=== PATIENT | male | born 1945 | race Caucasian/White ===

== ENCOUNTER 2016-11-17 09:19 | Emergency (ER) | payer MEDICARE, OTHER ==
[2016-11-17] MEDS ORDERED: ASPIRIN 81 MG TABLET, CHEWABLE PO ONE (09:21)
[2016-11-17 10:10] LABS: ABSOLUTE BASOPHILS # (AUTO) 0.1 10^3/uL (0.0-0.2); ABSOLUTE EOSINOPHILS # (AUTO) 0.4 10^3/uL (0.0-0.6); ABSOLUTE LYMPHOCYTES (AUTO) 1.7 10^3/uL (0.5-4.7); ABSOLUTE MONOCYTES (AUTO) 0.9 10^3/uL (0.1-1.4); ABSOLUTE NEUT (AUTO) 5.6 10^3/uL (1.7-8.2); BASOPHILS % (AUTO) 0.9 % (0-2); EOSINOPHILS % (AUTO) 4.1 % (0-6); HEMATOCRIT 44.6 % (37.9-51.0); HEMOGLOBIN 15.4 g/dL (13.5-17.0); HGB HCT DIFFERENCE 1.6; LYMPHOCYTES % (AUTO) 19.8 % (13-45); MEAN CORPUSCULAR HEMOGLOBIN 30.5 pg (27.0-33.4); MEAN CORPUSCULAR HGB CONC 34.5 g/dL (32.0-36.0); MEAN CORPUSCULAR VOLUME 88 fl (80-97); MONOCYTES % (AUTO) 10.4 % (3-13); RED BLOOD COUNT 5.04 10^6/uL (4.35-5.55); RED CELL DISTRIBUTION WIDTH 13.5 % (11.5-14.0); SEGMENTED NEUTROPHILS % (AUTO) 64.8 % (42-78); WHITE BLOOD COUNT 8.7 10^3/uL (4.0-10.5)
--- NOTE | 2016-11-17 10:20 | EKG REPORT ---
SEVERITY:- NORMAL ECG - SINUS RHYTHM : Confirmed by: Richard Gardner 17-Nov-2016 10:18:49
[2016-11-17 10:28] LABS: ALANINE AMINOTRANSFERASE 59 U/L (21-72); ALBUMIN 4.3 g/dL (3.5-5.0); ALKALINE PHOSPHATASE 73 U/L (38-126); ANION GAP 14 (5-19); ASPARTATE AMINO TRANSFERASE 30 U/L (17-59); BILIRUBIN,TOTAL 0.7 mg/dL (0.2-1.3); BLOOD UREA NITROGEN 15 mg/dL (7-20); CALCIUM 9.6 mg/dL (8.4-10.2); CARBON DIOXIDE 29 mmol/L (22-30); CHLORIDE 94 mmol/L (98-107); CREATINE KINASE 166 U/L (55-170); CREATININE RESULT 1.32 mg/dL (0.52-1.25); GLUCOSE 102 mg/dL (75-110); POTASSIUM 3.6 mmol/L (3.6-5.0); TOTAL PROTEIN 7.5 g/dL (6.3-8.2)
[2016-11-17 10:39] LABS: CREATINE KINASE MB 1.83 ng/mL (<4.55)
[2016-11-17 10:40] LABS: TROPONIN I < 0.012 ng/mL
--- NOTE | 2016-11-17 10:46 | ER Document Report ---
ED General - General Mode of Arrival: Ambulatory Information source: Patient TRAVEL OUTSIDE OF THE [place] IN LAST 30 DAYS: No - HPI Patient complains to provider of: chest pain Onset: Other - 2 weeks ago Onset/Duration: Gradual, Intermittent, Persistent Associated symptoms: None Similar symptoms previously: Yes - December 2015 <ALDO BRIDGES - Last Filed: 11/17/16 10:50> <MELANIA VARELA - Last Filed: 11/17/16 11:41> - General Chief Complaint: Chest Pain Stated Complaint: CHEST PAIN Notes: Patient is a 71-year-old male presenting to the emergency department concerned of intermittent chest pain onset 2 weeks ago. Patient states the pain is exacerbated with stretching and deep breaths, but this also sometimes relieves the pain. Patient states the pain extends from his mid chest into his right anterior chest wall into his underarm. There are no new or worsening symptoms today, but the patient decided to come in today because of the long duration. Patient had a similar experience back in December , but the pain went away on its own after a negative cardiac cath. (ALDO BRIDGES) - Related Data Allergies/Adverse Reactions: No Known Allergies Allergy (Unverified 11/17/16 09:30) Past Medical History - General Information source: Patient - Social History Smoking Status: Former Smoker - ~30 y/a Cigarette use (# per day): No Chew tobacco use (# tins/day): No Frequency of alcohol use: Occasional Drug Abuse: None Lives with: Spouse/Significant other Family History: Reviewed & Not Pertinent Patient has suicidal ideation: No Patient has homicidal ideation: No - Past Medical History Cardiac Medical History: Reports: Hx Hypertension Past Surgical History: Reports: Hx Cardiac Catheterization, Hx Cardiac Surgery, Hx Coronary Stent <ALDO BRIDGES - Last Filed: 11/17/16 10:50> Review of Systems - Review of Systems Constitutional: No symptoms reported EENT: No symptoms reported Cardiovascular: See HPI, Chest pain Respiratory: No symptoms reported Gastrointestinal: No symptoms reported Genitourinary: No symptoms reported Male Genitourinary: No symptoms reported Musculoskeletal: No symptoms reported Skin: No symptoms reported Hematologic/Lymphatic: No symptoms reported Neurological/Psychological: No symptoms reported -: Yes All other systems reviewed and negative <ALDO BRIDGES - Last Filed: 11/17/16 10:50> Physical Exam - Vital signs Interpretation: Hypertensive - General General appearance: Appears well, Alert - HEENT Head: Normocephalic, Atraumatic Eyes: Normal Pupils: PERRL - Respiratory Respiratory status: No respiratory distress Chest status: Nontender Breath sounds: Normal Chest palpation: Normal - Cardiovascular Rhythm: Regular Heart sounds: Normal auscultation Murmur: No - Abdominal Inspection: Obese Distension: No distension Bowel sounds: Normal Tenderness: Nontender Organomegaly: No organomegaly - Back Back: Normal, Nontender - Extremities General upper extremity: Normal inspection, Nontender, Normal color, Normal ROM , Normal temperature General lower extremity: Normal inspection, Nontender, Normal color, Normal ROM , Normal temperature - Neurological Neuro grossly intact: Yes Cognition: Normal Pollock Coma Scale Eye Opening: Spontaneous Estevan Coma Scale Verbal: Oriented Pollock Coma Scale Motor: Obeys Commands Estevan Coma Scale Total: 15 Speech: Normal - Psychological Associated symptoms: Normal affect, Normal mood - Skin Skin Temperature: Warm Skin Moisture: Dry Skin Color: Normal <ALDO BRIDGES - Last Filed: 11/17/16 10:50> Course - Laboratory Result Diagrams: 11/17/16 09:53 11/17/16 09:53 <ALDO BRIDGES - Last Filed: 11/17/16 10:50> - Laboratory Result Diagrams: 11/17/16 09:53 11/17/16 09:53 <MELANIA VARELA - Last Filed: 11/17/16 11:41> - Vital Signs Vital signs: Temp Pulse Resp BP Pulse Ox 97.6 F 77 13 138/74 H 95 11/17/16 09:31 11/17/16 09:31 11/17/16 10:57 11/17/16 10:57 11/17/16 10:57 (ALDO BRIDGES) (MELANIA VARELA) - Laboratory Laboratory results interpreted by me: 11/17/16 09:53 Chloride 94 L Creatinine 1.32 H Est GFR (Non-Af Amer) 54 L (ALDO BRIDGES) (MELANIA VARELA) Discharge <ALDO BRIDGES - Last Filed: 11/17/16 10:50> <MELANIA VARELA - Last Filed: 11/17/16 11:41> - Discharge Clinical Impression: Anterior chest wall pain Condition: Stable Disposition: HOME, SELF-CARE Additional Instructions: Chest Wall Pain: Your chest pain has been diagnosed as coming from the chest wall. This is often caused by straining the muscles or joints in the chest during physical activity, direct trauma, coughing, or vigorous vomiting. Persons with arthritis are especially prone to this type of pain, due to inflammation of the cartilage joints near the breast bone. Occasionally, no cause can be found. Rest from strenuous physical activity. This kind of chest pain is usually made worse by movement of the chest. Depending on the symptoms, we may prescribe medicine for pain, muscle relaxation, and antiinflammatory effects. If the pain is new, and seems to be due to muscle strain, cold packs can help. Otherwise, apply gentle warmth to the painful area for 15 minutes every hour or two. You should contact the doctor immediately if things change. Further evaluation is needed if you develop a fever or cough, if the nature of the pain changes, or if you become short of breath. YOUR PAIN SEEMS TO BE COMING FROM THE RIGHT ANTERIOR CHEST WALL MUSCLES. YOUR EKG, CXR AND CARDIAC ENZYMES ARE NORMAL. YOUR BLOOD PRESSURE WAS A LITTLE ELEVATED. BE SURE TO TAKE YOUR REGULAR MEDICATIONS. REST. FOLLOW UP WITH DR. HSU NEXT WEEK IF THE DISCOMFORT PERSISTS. RETURN TO THE EMERGENCY ROOM IF ANY NEW OR WORSENING SYMPTOMS. Referrals: BAYRON HSU MD [Primary Care Provider] - Follow up in 3-5 days Scribe Attestation: 11/17/16 10:50 I personally performed the services described in the documentation, reviewed and edited the documentation which was dictated to the scribe in my presence, and it accurately records my words and actions. (MELANIA VARELA) Scribe Documentation - Scribe Written by Tracie:: Aldo Bridges 11/17/2016 10:40 acting as scribe for :: Dulce <ALDO BRIDGES - Last Filed: 11/17/16 10:50>
[2016-11-17 11:01] VITALS: BP 138/74
== END 2016-11-17 11:02 | disposition home or self-care (01) ==
LOC: ER 09:19
DX: R07.89 Other chest pain (principal); I10 Essential (primary) hypertension; Z98.61 Coronary angioplasty status; Z87.891 Personal history of nicotine dependence
CPT/HCPCS: 93005; 99285; 36415; 82553; 82550; 85025; 80053; 84484; 71010; 93010; A9270

== ENCOUNTER → 2016-12-22 | Outpatient (CLI) | payer MEDICARE, OTHER ==
--- NOTE | 2016-12-25 13:15 | XCELERA REPORT ---
[address] [address] Transthoracic Echocardiogram Report Name: JANNIE PHILLIPS Age: 71 yrs Gender: Male : 1945 Patient Status: Outpatient Patient Location: [facility] Study Date: 12/22/2016 03:12 PM Height: 69 in Weight: 222 lb BSA: 2.2 m2 Procedure: A complete two-dimensional transthoracic echocardiogram was performed (2D, M-mode, spectral and color flow Doppler). The study was technically adequate with some images being suboptimal in quality. Reason For Study: PRE OP, CAD Ordering Physician: ROLANDO LUDWIG Performed By: Kale Ellsworth Interpretation Summary The left ventricular ejection fraction is normal. There is borderline concentric left ventricular hypertrophy. The left ventricle is grossly normal size. Doppler measurements suggest impaired left ventricular relaxation, which is associated with grade I/IV or mild diastolic dysfunction Wall motion cannot be accurately commented on, but no definite regional wall motion abnormalities noted. The right ventricular systolic function is normal. The right atrium is normal. The left atrium is mildly dilated. There is no mitral valve stenosis. There is a trace to mild amount of mitral regurgitation There is no aortic valve stenosis No aortic regurgitation is present. There is a trace to mild amount of tricuspid regurgitation Right ventricular systolic pressure is at the upper limits of normal There is no pericardial effusion. MMode/2D Measurements \T\ Calculations RVDd: 2.4 cm LVIDd: 6.1 cm FS: 23.5 % Ao root diam: 3.4 cm IVSd: 0.85 cm LVIDs: 4.7 cm EDV(Teich): 188.2 ml LVPWd: 0.90 cm ESV(Teich): 101.3 ml Ao root area: 8.8 cm2 EF(Teich): 46.2 % LA dimension: 4.7 cm Doppler Measurements \T\ Calculations MV E max kizzy: MV P1/2t max kizzy: Ao V2 max: LV V1 max P.7 cm/sec 65.4 cm/sec 116.4 cm/sec 4.2 mmHg MV A max kizzy: MV P1/2t: 66.7 msec Ao max PG: LV V1 max: 81.0 cm/sec 5.4 mmHg 102.7 cm/sec MV E/A: 0.79 MVA(P1/2t): 3.3 cm2 MV dec slope: 286.9 cm/sec2 MV dec time: 0.22 sec PA V2 max: PI end-d kizzy: TR max kizzy: RAP systole: 79.0 cm/sec 96.0 cm/sec 256.0 cm/sec 10.0 mmHg PA max PG: TR max P.5 mmHg 26.2 mmHg RVSP(TR): 36.2 mmHg Left Ventricle The left ventricle is grossly normal size. There is borderline concentric left ventricular hypertrophy. The left ventricular ejection fraction is normal. Doppler measurements suggest impaired left ventricular relaxation, which is associated with grade I/IV or mild diastolic dysfunction. Wall motion cannot be accurately commented on, but no definite regional wall motion abnormalities noted. Right Ventricle The right ventricle is grossly normal size. There is normal right ventricular wall thickness. The right ventricular systolic function is normal. Atria The right atrium is normal. The left atrium is mildly dilated. Interarterial septum not well visualized and not well dopplered. Cannot comment on ASD/PFO presence. Mitral Valve The mitral valve is grossly normal. There is no mitral valve stenosis. There is a trace to mild amount of mitral regurgitation. Aortic Valve The aortic valve is grossly normal. There is no aortic valve stenosis. No aortic regurgitation is present. Tricuspid Valve The tricuspid valve is not well visualized, but is grossly normal. There is no tricuspid stenosis. There is a trace to mild amount of tricuspid regurgitation. Right ventricular systolic pressure is at the upper limits of normal. Pulmonic Valve The pulmonic valve is not well visualized. Great Vessels The aortic root is not well visualized but is probably normal size. The inferior vena cava was not visualized. Effusions There is no pericardial effusion. : ROLANDO LUDWIG Kristen Gardnerl
== END ==
LOC: SP 14:51
PROVIDERS: ATTEND Specialist
DX: Z01.810 Encounter for preprocedural cardiovascular examination (principal); I25.10 Atherosclerotic heart disease of native coronary artery without angina pectoris
CPT/HCPCS: 93306

== ENCOUNTER 2017-01-29 08:11 | Inpatient (IN) | payer MEDICARE, OTHER ==
[2017-01-18 14:18] LABS: HEMATOCRIT 44.2 % (37.9-51.0); HEMOGLOBIN 15.3 g/dL (13.5-17.0); HGB HCT DIFFERENCE 1.7; MEAN CORPUSCULAR HEMOGLOBIN 30.6 pg (27.0-33.4); MEAN CORPUSCULAR HGB CONC 34.7 g/dL (32.0-36.0); MEAN CORPUSCULAR VOLUME 88 fl (80-97); RED BLOOD COUNT 5.02 10^6/uL (4.35-5.55); RED CELL DISTRIBUTION WIDTH 13.8 % (11.5-14.0); WHITE BLOOD COUNT 9.5 10^3/uL (4.0-10.5)
[2017-01-18 14:32] LABS: APPEARANCE,URINE CLEAR; BILIRUBIN,URINE NEGATIVE (NEGATIVE); GLUCOSE, URINE NEGATIVE (NEGATIVE); KETONES,URINE NEGATIVE (NEGATIVE); LEUKOCYTE ESTERASE,URINE NEGATIVE (NEGATIVE); NITRITE,URINE NEGATIVE (NEGATIVE); PROTEIN,URINE NEGATIVE (NEGATIVE); URINE SPECIFIC GRAVITY 1.009; UROBILINOGEN,URINE NEGATIVE mg/dL (<2.0)
[2017-01-18 14:42] LABS: ANION GAP 13 (5-19); BLOOD UREA NITROGEN 19 mg/dL (7-20); CARBON DIOXIDE 28 mmol/L (22-30); CHLORIDE 93 mmol/L (98-107); CREATININE RESULT 1.26 mg/dL (0.52-1.25); GLUCOSE 87 mg/dL (75-110); POTASSIUM 4.6 mmol/L (3.6-5.0); SODIUM 133.9 mmol/L (137-145)
--- NOTE | 2017-01-18 20:04 | EKG REPORT ---
SEVERITY:- NORMAL ECG - SINUS RHYTHM : Confirmed by: Richard Gardner 18-Jan-2017 20:02:35
[~2017-01-29 08:11] MED LIST: BUPIVACAINE INJ/PF LIPOSOME/PF 266 MG/20 ML SDV IJ PRN; CEFAZOLIN INJ 1 GM VIAL IV PRN; IBUPROFEN 800 MG in NORMAL SALINE 250 ML IV PRN; IBUPROFEN 800 MG/NS 250 ML IV PRN; LACTATED RINGERS 1000 ML IV PRN; LANSOPRAZOLE 15 MG TAB.RAP.DR PO PRN; LIDOCAINE 0.5% INJ-PF (5 MG/ML) 50 ML SDV SUBCUT PRN; OXYCODONE HCL SR 10 MG TABLET PO PRN; SCOPOLAMINE HYDROBROMIDE 1.5 MG PATCH.TD72 TOP PRN; VANCOMYCIN HCL 1,000 MG in DEXTROSE 5%-WATER 250 ML IV PRN
[2017-01-29] MEDS ORDERED: ONDANSETRON HCL INJ/PF 4 MG/2 ML SDV ONE (08:15)
[2017-01-29] MEDS ORDERED: LIDOCAINE 2% INJ-PF (20 MG/ML) 10 ML AMPUL ONE (08:15)
[2017-01-29 08:52] LABS: PROTHROMBIN TIME 12.4 SEC (11.4-15.4)
[2017-01-29 08:53] LABS: PARTIAL THROMBOPLASTIN TIME 31.5 SEC (23.5-35.8)
[2017-01-29] MEDS ORDERED: EPHEDRINE SULFATE INJ 50 MG/1 ML AMPULE ONE (08:53)
[2017-01-29] MEDS ORDERED: MIDAZOLAM 2 MG/2 ML INJ ONE (08:53)
[2017-01-29] MEDS ORDERED: FENTANYL CITRATE INJ/PF 100 MCG/2 ML AMPUL ONE (08:53)
[2017-01-29] MEDS ORDERED: PROPOFOL INJ 200 MG/20 ML VIAL IV ONE (08:53)
[2017-01-29] MEDS ORDERED: DEXMEDETOMIDINE INJ 80 MCG/20 ML VIAL IV ONE (08:54)
[2017-01-29] MEDS ORDERED: TRANEXAMIC ACID INJ/PF 1,000 MG/10 ML SDV IV ONE ×2 (08:54→14:00)
[2017-01-29] MEDS ORDERED: THROMBIN (BOVINE) 5000 UNIT EPITAXIS KIT ONE (08:55)
[2017-01-29] MEDS ORDERED: THROMBIN (BOVINE) TOPICAL 20000 UNIT VIAL ONE (08:55)
[2017-01-29] MEDS ORDERED: BUPIVACAINE INJ/PF LIPOSOME/PF 266 MG/20 ML SDV ONE (08:56)
[2017-01-29] MEDS ORDERED: MORPHINE SULFATE 10 MG/ML INJ IV PRN ×4 (10:30→11:14)
[2017-01-29] MEDS ORDERED: PROMETHAZINE HCL INJ 25 MG/1 ML VIAL IV PRN ×2 (10:30)
[2017-01-29] MEDS ORDERED: FENTANYL CITRATE INJ/PF 100 MCG/2 ML AMPUL IV PRN ×3 (10:30)
[2017-01-29] MEDS ORDERED: OXYCODONE-ACETAMINOPHEN 5-325 MG TABLET PO PRN ×2 (10:30)
[2017-01-29] MEDS ORDERED: MEPERIDINE HCL/PF INJ 25 MG/1 ML DISP.SYRIN IV PRN (10:30)
[2017-01-29] MEDS ORDERED: DIPHENHYDRAMINE HCL 50 MG/ML VIAL IV PRN ×2 (10:30→11:14)
[2017-01-29] MEDS ORDERED: FLUTICASONE PROPIONATE 50 MCG NS PRN (11:12)
--- NOTE | 2017-01-29 11:12 | Operative Report ---
Operative Report DATE OF SURGERY: 01/29/17 PREOPERATIVE DIAGNOSIS: Right hip arthritis OPERATION: Right hip arthroplasty SURGEON: ORLY ORANTES ANESTHESIA: Spinal TISSUE REMOVED OR ALTERED: Femoral head to pathology ESTIMATED BLOOD LOSS: 150 PROCEDURE: Implants used: Femur: Striker #7 Accolade to stem Acetabular shell: 58 mm shell Liner:, 36 mm flat cross-link polyethylene liner Head:. 36 mm chrome cobalt head The patient is placed in a, left lateral decubitus position on the operating table. The, right lower extremity and hindquarter is prepped and draped in a sterile fashion. A curvilinear incision was made over the greater trochanter a posterior approach the hip was taken. The femoral head is dislocated and the femoral neck transected using an oscillating saw. Attention was next turned to the acetabulum. Soft tissues cleared off the acetabulum using electrocautery. The acetabulum was then prepared using a series of hemispherical reamers until a, 57 millimeters reamer is seated. Subsequently a 58 millimeters Alejandra titanium hemispherical shell is impacted into position and secured with one screw. A standard flat, 36 millimeters cross -link liner is impacted into the shell. Attention was next turned to the femur. Access is gained to the femoral canal using a box osteotome to the piriformis fossa. The femur is then prepared using a series of broaches until a number 7 broach is seated. A trial reduction was now performed using a 36 millimeters head with standard neck. Preoperative leg length was recreated and is excellent anterior posterior stability. A decision was made to proceed with the above construct. All trial implants were removed. The wound is irrigated with pulsed lavage. A number 7 stem is impacted into the femoral canal. A trial reduction was again performed with a 36 mm head and a standard neck. Findings as previously. The hip was dislocated one last time and the final chrome-cobalt head is impacted onto the trunnion. The hip was reduced. Wound is copiously irrigated with pulsed lavage. Sent closed in layers using interrupted Vicryl followed by james. A sterile dressing is applied and the patient's returned to recovery room in satisfactory patient.
[2017-01-29] MEDS ORDERED: MORPHINE SULFATE 10 MG/ML INJ IM PRN (11:14)
[2017-01-29] MEDS ORDERED: ACETAMINOPHEN 325 MG TABLET PO PRN (11:14)
[2017-01-29] MEDS ORDERED: ONDANSETRON 4 MG TAB.RAPDIS PO PRN (11:14)
[2017-01-29] MEDS ORDERED: ZOLPIDEM TARTRATE 5 MG TABLET PO PRN (11:14)
[2017-01-29] MEDS ORDERED: RINGERS SOLUTION,LACTATED 1,000 ML IV PRN (11:14)
[2017-01-29] MEDS ORDERED: ONDANSETRON HCL INJ/PF 4 MG/2 ML SDV IV PRN (11:14)
[2017-01-29] MEDS ORDERED: FLUTICASONE NASAL SPRAY 50 MCG/SPRY 120 SPRAY/16 GM NASL PRN (11:30)
[2017-01-29] MEDS: OXYCODONE HCL IR 5 MG TABLET PO PRN ×2 (13:24→20:53)
[2017-01-29] MEDS: IBUPROFEN 800 MG in NORMAL SALINE 250 ML IV SCH ×2 (14:00→22:41)
[2017-01-29] MEDS: SENNOSIDES/DOCUSATE 8.6-50 MG 1 EACH TABLET PO SCH (17:39)
--- NOTE | 2017-01-29 19:29 | PDOC CONSULTATION ---
Consultation Consult Date: 01/29/17 Attending physician:: ORLY ORANTES Consult reason:: Medical management of post operative medical morbidities History of Present Illness Admission Date/PCP: 01/29/17 08:11 BAYRON HSU Patient complains of: Post operative medical management History of Present Illness: JANNIE PHILLIPS is a 71 year old male patient was admitted for right total hip replacement surgery which was completed earlier today. He reported already ambulation on the surgical floor today. Patient denied any episode of chest pain pre and post surgery. No shortness of breath. No nausea or vomiting. Tolerating oral feeding.His comorbidities is significant for HTN, CAD s/p stent angioplasty, HLD, GERD, and degenerative osteoarthritis with multiple joints involvement but predominant pain in hip joints. Past Medical History Cardiac Medical History: Reports: Coronary Artery Disease, Hyperlipidema, Hypertension, Peripheral Vascular Disease Denies: Atrial Fibrillation, Congestive Heart Failure, Myocardial Infarction , Heart Murmur Renal/ Medical History: Denies: End Stage Renal Disease Malignancy Medical History: Denies: Breast Cancer, Cervical Cancer, Ovarian Cancer GI Medical History: Reports: Gastroesophageal Reflux Disease - occ (takes Tums occasionally) Denies: Crohn's Disease, Hiatal Hernia Musculoskeltal Medical History: Reports: Arthritis Denies: Fibromyalgia Past Surgical History Past Surgical History: Reports: Cardiac Catheterization, Coronary Stent, Tonsillectomy Denies: Appendectomy, Cholecystectomy, Colostomy, Coronary Artery Bypass Graft, Gastric Bypass Surgery, Herniorrhaphy, Pacemaker Social History Smoking Status: Former Smoker Hx Recreational Drug Use: No Hx Prescription Drug Abuse: No - Advance Directive Resuscitation Status: Full Code Family History Family History: Reviewed & Not Pertinent Parental Family History Reviewed: Yes Children Family History Reviewed: Yes Sibling(s) Family History Reviewed.: Yes Medication/Allergy Home Medications: Amlodipine/Atorvastatin [Caduet 10 mg-40 mg Tablet] 1 each PO QAM 01/16/17 Aspirin [Aspirin EC] 81 mg PO QAM 01/16/17 Azilsartan Med/Chlorthalidone [Edarbyclor 40-25 mg Tablet] 1 each PO QAM Cholecalciferol (Vitamin D3) [Vitamin D3 2000 unit Tablet] 2,000 unit PO QAM 05/28 Clopidogrel Bisulfate [Plavix] 75 mg PO QAM 01/16/17 Finasteride 5 mg PO QAM 01/16/17 Fish Oil/Dha/Epa [Fish Oil 1,200 mg Fish Oil] 2 each PO DAILY 01/16/17 Fluticasone Propionate 50 mcg NS DAILY PRN 01/16/17 Metoprolol Succinate [Toprol Xl] 100 mg PO QAM 01/16/17 Olopatadine HCl [Patanol 0.1% Oph Soln 5 Ml Bottle] 1 drop BTH_EYE DAILY PRN 05/28 Allergies/Adverse Reactions: No Known Allergies Allergy (Unverified 11/17/16 09:30) Review of Systems Constitutional: ABSENT: chills, fever(s), headache(s), weight gain, weight loss Eyes: PRESENT: as per HPI, visual disturbances - with use of corrective lenses, other Ears: PRESENT: hearing changes - some degree of heraing impairment Nose, Mouth, and Throat: ABSENT: as per HPI, headache(s), mouth pain, sore throat, vertigo, other Cardiovascular: ABSENT: chest pain, dyspnea on exertion, edema, orthropnea, palpitations Respiratory: ABSENT: cough, hemoptysis Gastrointestinal: ABSENT: abdominal pain, constipation, diarrhea, hematemesis, hematochezia, nausea, vomiting Musculoskeletal: PRESENT: deformity - due to joint involvement by arthritis Integumentary: ABSENT: as per HPI, diaphoresis, erythema, lesions, pruritus, rash, wounds, other Neurological: ABSENT: abnormal gait, abnormal speech, confusion, dizziness, focal weakness, syncope Psychiatric: ABSENT: anxiety, depression, homidical ideation, suicidal ideation Endocrine: ABSENT: cold intolerance, heat intolerance, menstrual abnormalities, polydipsia, polyuria Hematologic/Lymphatic: ABSENT: easy bleeding, easy bruising, lymphadenopathy Physical Exam Vital Signs: Temp Pulse Resp BP Pulse Ox 98.1 F 62 20 109/51 L 96 01/29/17 18:04 01/29/17 18:04 01/29/17 18:04 01/29/17 18:04 01/29/17 18:04 Intake & Output 01/28/17 01/29/17 01/30/17 06:59 06:59 06:59 Intake Total 5390 Output Total 2360 Balance 3030 General appearance: PRESENT: no acute distress, cooperative, obese Head exam: PRESENT: atraumatic, normocephalic Eye exam: PRESENT: conjunctiva pink, EOMI, PERRLA. ABSENT: scleral icterus Ear exam: PRESENT: normal external ear exam Mouth exam: PRESENT: moist, tongue midline Throat exam: ABSENT: post pharyngeal erythema, tonsillar erythema, tonsillar exudate, tonsillogmegaly, other Neck exam: PRESENT: full ROM. ABSENT: carotid bruit, JVD, lymphadenopathy, thyromegaly Respiratory exam: PRESENT: clear to auscultation jazmin Cardiovascular exam: PRESENT: RRR. ABSENT: diastolic murmur, rubs, systolic murmur GI/Abdominal exam: PRESENT: normal bowel sounds, soft. ABSENT: distended, guarding, mass, organolmegaly, rebound, tenderness Gentrourinary exam: PRESENT: indwelling catheter - in situ and possible removal with next 24 hours Extremities exam: PRESENT: tenderness - minimally around right hip joint surgical site. Dressing is satisfatory. Musculoskeletal exam: PRESENT: ambulatory - with walker assistance, deformity - related to multiple joint involvement with arthritis Neurological exam: PRESENT: alert, awake, oriented to person, oriented to place , oriented to time, oriented to situation, CN II-XII grossly intact. ABSENT: motor sensory deficit Psychiatric exam: PRESENT: appropriate affect, normal mood. ABSENT: homicidal ideation, suicidal ideation Skin exam: PRESENT: dry, warm, other - right hip arthroplasty dressing is satisfactory. Results Laboratory Results: 01/18/17 12:30 01/29/17 08:31 01/29/17 01/29/17 08:31 08:31 Potassium 4.0 Blood Type AB POSITIVE Antibody Screen NEGATIVE Impressions: Chest X-Ray 01/18/17 11:39 IMPRESSION: NO SIGNIFICANT RADIOGRAPHIC FINDING IN THE CHEST. Pelvis X-Ray 01/29/17 11:15 IMPRESSION: Satisfactory postoperative right hip. Assessment & Plan - Diagnosis (1) HTN (hypertension) Qualifiers: Hypertension type: essential hypertension Qualified Code(s): I10 - Essential (primary) hypertension Is this a current diagnosis for this admission?: YesPlan: See consulting attending orders. (2) HLD (hyperlipidemia) Qualifiers: Hyperlipidemia type: pure hypercholesterolemia Qualified Code(s): E78.00 - Pure hypercholesterolemia, unspecified; E78.0 - Pure hypercholesterolemia Is this a current diagnosis for this admission?: YesPlan: See consulting attending orders. (3) S/P primary angioplasty with coronary stent Is this a current diagnosis for this admission?: YesPlan: See consulting attending orders. (4) GERD (gastroesophageal reflux disease) Qualifiers: Esophagitis presence: without esophagitis Qualified Code(s): K21.9 - Gastro-esophageal reflux disease without esophagitis Is this a current diagnosis for this admission?: YesPlan: See consulting attending orders. (5) Osteoarthritis involving multiple joints on both sides of body Is this a current diagnosis for this admission?: YesPlan: See consulting attending orders. (6) History of total right hip arthroplasty Is this a current diagnosis for this admission?: YesPlan: See consulting attending orders. - Time Time Spent: 50 to 70 Minutes Medications reviewed and adjusted accordingly: Yes Anticipated discharge: Home with Homehealth Within: within 72 hours - Inpatient Certification Based on my medical assessment, after consideration of the patient's comorbidities, presenting symptoms, or acuity I expect that the services needed warrant INPATIENT care.: Yes I certify that my determination is in accordance with my understanding of Medicare's requirements for reasonable and necessary INPATIENT services [42 CFR 412.3e].: Yes Medical Necessity: Need For IV Fluids, Need for Surgery, Risk of Complication if Not Cared For in Hospital Post Hospital Care: D/C Probation And Parole Officer Documentation - Plan Summary Plan Summary: See consulting attending orders.
[2017-01-29] MEDS: RIVAROXABAN 10 MG TABLET PO SCH (22:40)
[2017-01-29] MEDS: OXYCODONE HCL SR 10 MG TABLET PO SCH (22:40)
[2017-01-29] MEDS ORDERED: VANCOMYCIN HCL 1,000 MG in DEXTROSE 5%-WATER 250 ML IV ONE (23:00)
[2017-01-30] MEDS: LANSOPRAZOLE 30 MG TAB.RAP.DR PO SCH (05:41)
[2017-01-30] MEDS: IBUPROFEN 800 MG in NORMAL SALINE 250 ML IV SCH (05:41)
[2017-01-30] MEDS: OXYCODONE HCL IR 5 MG TABLET PO PRN (06:52)
[2017-01-30 07:19] LABS: HEMATOCRIT 33.1 % (37.9-51.0); HEMOGLOBIN 11.5 g/dL (13.5-17.0); HGB HCT DIFFERENCE 1.4; MEAN CORPUSCULAR HEMOGLOBIN 30.8 pg (27.0-33.4); MEAN CORPUSCULAR HGB CONC 34.7 g/dL (32.0-36.0); MEAN CORPUSCULAR VOLUME 89 fl (80-97); RED BLOOD COUNT 3.73 10^6/uL (4.35-5.55); RED CELL DISTRIBUTION WIDTH 13.8 % (11.5-14.0); WHITE BLOOD COUNT 10.7 10^3/uL (4.0-10.5)
[2017-01-30 07:43] LABS: ANION GAP 11 (5-19); BLOOD UREA NITROGEN 32 mg/dL (7-20); CALCIUM 8.8 mg/dL (8.4-10.2); CARBON DIOXIDE 24 mmol/L (22-30); CHLORIDE 97 mmol/L (98-107); CREATININE RESULT 2.29 mg/dL (0.52-1.25); GLUCOSE 110 mg/dL (75-110); POTASSIUM 4.8 mmol/L (3.6-5.0); SODIUM 132.4 mmol/L (137-145)
[2017-01-30] MEDS ORDERED: CHLORTHALIDONE PO SCH (08:00)
[2017-01-30] MEDS ORDERED: [UNRECOGNIZED DRUG - OTHER] PO SCH (08:00)
[2017-01-30] MEDS ORDERED: AZILSARTAN MED PO SCH (08:00)
[2017-01-30] MEDS ORDERED: ATORVASTATIN PO SCH (08:00)
[2017-01-30] MEDS ORDERED: AMLODIPINE PO SCH (08:00)
[2017-01-30] MEDS ORDERED: NORMAL SALINE 1000 ML 1,000 ML IV PRN (08:23)
[2017-01-30] MEDS ORDERED: CLOPIDOGREL BISULFATE 75 MG TABLET PO SCH (10:00)
[2017-01-30] MEDS: OXYCODONE HCL SR 10 MG TABLET PO SCH ×2 (10:21→22:12)
[2017-01-30] MEDS: ATORVASTATIN CALCIUM 40 MG TABLET PO SCH (10:22)
[2017-01-30] MEDS: SENNOSIDES/DOCUSATE 8.6-50 MG 1 EACH TABLET PO SCH ×2 (10:23→17:27)
[2017-01-30] MEDS: FINASTERIDE 5 MG TABLET PO SCH (10:23)
[2017-01-30] MEDS: PRENATAL VITAMIN W-O CA NO5/FE FUMARATE/FA CAPSULE PO SCH (10:24)
[2017-01-30] MEDS: AMLODIPINE BESYLATE 10 MG TABLET PO SCH (10:34)
[2017-01-30] MEDS: LOSARTAN POTASSIUM 50 MG TABLET PO SCH (10:37)
[2017-01-30] MEDS: CHLORTHALIDONE 25 MG TABLET PO SCH (10:37)
[2017-01-30] MEDS: METOPROLOL SUCCINATE 50 MG TAB.SR.24H PO SCH (10:37)
--- NOTE | 2017-01-30 13:33 | PDOC PROGRESS REPORT ---
Subjective Progress Note for:: 01/30/17 Subjective:: Patient was out of bed in chair at the time of my bedside consultation earlier this morning. Tolerating breakfast. No nausea or vomiting. He denied any chest pain or difficulty with breathing. No reported fever or chills. Reported satisfactory pain control and anticipatory of physical therapy session. Physical Exam Vital Signs: Temp Pulse Resp BP Pulse Ox 98.2 F 71 18 114/59 L 96 01/30/17 09:56 01/30/17 09:56 01/30/17 09:56 01/30/17 09:56 01/30/17 09:56 Intake & Output 01/29/17 01/30/17 01/31/17 06:59 06:59 06:59 Intake Total 5690 Output Total 2560 Balance 3130 Weight 114 kg General appearance: PRESENT: no acute distress, cooperative, obese Head exam: PRESENT: atraumatic, normocephalic Eye exam: PRESENT: conjunctiva pink, EOMI, PERRLA. ABSENT: scleral icterus Respiratory exam: PRESENT: clear to auscultation jazmin Cardiovascular exam: PRESENT: RRR. ABSENT: diastolic murmur, rubs, systolic murmur GI/Abdominal exam: PRESENT: normal bowel sounds, soft. ABSENT: distended, guarding, mass, organolmegaly, rebound, tenderness Extremities exam: PRESENT: full ROM, tenderness - around right hip surgical site. Musculoskeletal exam: PRESENT: ambulatory, deformity - related to joint involvement with arthritis, tenderness - around right hip surgical site. Neurological exam: PRESENT: alert, awake, oriented to person, oriented to place , oriented to time, oriented to situation, CN II-XII grossly intact. ABSENT: motor sensory deficit Skin exam: PRESENT: dry, warm, other - right hip surgical site dressing fairly satisfactory. Results Laboratory Results: 01/30/17 07:11 01/30/17 07:11 01/30/17 01/30/17 07:11 07:11 WBC 10.7 H RBC 3.73 L Hgb 11.5 L Hct 33.1 L MCV 89 MCH 30.8 MCHC 34.7 RDW 13.8 Plt Count 170 Sodium 132.4 L Potassium 4.8 Chloride 97 L Carbon Dioxide 24 Anion Gap 11 BUN 32 H Creatinine 2.29 H Est GFR ( Amer) 34 L Est GFR (Non-Af Amer) 28 L Glucose 110 Calcium 8.8 Impressions: Chest X-Ray 01/18/17 11:39 IMPRESSION: NO SIGNIFICANT RADIOGRAPHIC FINDING IN THE CHEST. Pelvis X-Ray 01/29/17 11:15 IMPRESSION: Satisfactory postoperative right hip. Assessment & Plan - Diagnosis (1) HTN (hypertension) Qualifiers: Hypertension type: essential hypertension Qualified Code(s): I10 - Essential (primary) hypertension Is this a current diagnosis for this admission?: YesPlan: See consulting attending physician orders. (2) HLD (hyperlipidemia) Qualifiers: Hyperlipidemia type: pure hypercholesterolemia Qualified Code(s): E78.00 - Pure hypercholesterolemia, unspecified; E78.0 - Pure hypercholesterolemia Is this a current diagnosis for this admission?: Yes (3) S/P primary angioplasty with coronary stent Is this a current diagnosis for this admission?: YesPlan: See consulting attending physician orders. (4) GERD (gastroesophageal reflux disease) Qualifiers: Esophagitis presence: without esophagitis Qualified Code(s): K21.9 - Gastro-esophageal reflux disease without esophagitis Is this a current diagnosis for this admission?: Yes (5) Osteoarthritis involving multiple joints on both sides of body Is this a current diagnosis for this admission?: Yes (6) History of total right hip arthroplasty Is this a current diagnosis for this admission?: YesPlan: S/p recent right hip arthroplasty surgery. See consulting attending physician orders. (7) Acute kidney injury Is this a current diagnosis for this admission?: NoPlan: See consulting attending physician orders. - Time Time Spent with patient: 25-34 minutes Medications reviewed and adjusted accordingly: Yes Anticipated discharge: Home with Homehealth Within: Other - Inpatient Certification Medical Necessity: Need Close Monitoring Due to Risk of Patient Decompensation, Need For IV Fluids, Need for Pain Control, Risk of Complication if Not Cared For in Hospital Post Hospital Care: D/C Manager Internship Documentation - Plan Summary Plan Summary: See consulting attending physician orders. D/C Ibuprofen usage. D/C Ringer Lactate infusion. Start on N/S infusion at 100 ml/hr. Obtain repeat BMP at 1600 Hr.
[2017-01-30] MEDS: MAG HYDROX/AL HYDROX/SIMETH SUSP 30 ML UDCUP PO PRN (15:38)
[2017-01-30 17:37] LABS: ANION GAP 15 (5-19); BLOOD UREA NITROGEN 35 mg/dL (7-20); CALCIUM 8.9 mg/dL (8.4-10.2); CARBON DIOXIDE 23 mmol/L (22-30); CHLORIDE 93 mmol/L (98-107); GLUCOSE 119 mg/dL (75-110); POTASSIUM 4.8 mmol/L (3.6-5.0); SODIUM 131.1 mmol/L (137-145)
[2017-01-30] MEDS: RIVAROXABAN 10 MG TABLET PO SCH (22:12)
[2017-01-31] MEDS: LANSOPRAZOLE 30 MG TAB.RAP.DR PO SCH (05:47)
[2017-01-31 06:45] LABS: HEMATOCRIT 33.6 % (37.9-51.0); HEMOGLOBIN 11.6 g/dL (13.5-17.0); HGB HCT DIFFERENCE 1.2; MEAN CORPUSCULAR HEMOGLOBIN 30.4 pg (27.0-33.4); MEAN CORPUSCULAR HGB CONC 34.5 g/dL (32.0-36.0); MEAN CORPUSCULAR VOLUME 88 fl (80-97); RED BLOOD COUNT 3.82 10^6/uL (4.35-5.55); RED CELL DISTRIBUTION WIDTH 13.8 % (11.5-14.0); WHITE BLOOD COUNT 13.8 10^3/uL (4.0-10.5)
[2017-01-31 07:11] LABS: ANION GAP 15 (5-19); BLOOD UREA NITROGEN 30 mg/dL (7-20); CARBON DIOXIDE 23 mmol/L (22-30); CHLORIDE 91 mmol/L (98-107); GLUCOSE 121 mg/dL (75-110); POTASSIUM 4.1 mmol/L (3.6-5.0); SODIUM 128.7 mmol/L (137-145)
--- NOTE | 2017-01-31 07:18 | PDOC DISCHARGE SUMMARY ---
General - Admit/Disc Date/PCP Admission Date/Primary Care Provider: 01/29/17 08:11 [facility] Discharge Date: 01/31/17 - Discharge Diagnosis (1) Arthritis of right hip Is this a current diagnosis for this admission?: Yes - Additional Information Resuscitation Status: Full Code Discharge Diet: As Tolerated, Regular Discharge Activity: Activity As Tolerated, Balance Activity w/Rest, No Driving Home Medications: Amlodipine/Atorvastatin [Caduet 10 mg-40 mg Tablet] 1 each PO QAM 01/16/17 Azilsartan Med/Chlorthalidone [Edarbyclor 40-25 mg Tablet] 1 each PO QAM Cholecalciferol (Vitamin D3) [Vitamin D3 2000 unit Tablet] 2,000 unit PO QAM 05/28 Finasteride 5 mg PO QAM 01/16/17 Fish Oil/Dha/Epa [Fish Oil 1,200 mg Fish Oil] 2 each PO DAILY 01/16/17 Fluticasone Propionate 50 mcg NS DAILY PRN 01/16/17 Metoprolol Succinate [Toprol Xl] 100 mg PO QAM 01/16/17 Olopatadine HCl [Patanol 0.1% Oph Soln 5 ml] 1 drop BTH_EYE DAILY PRN 01/16/17 Oxycodone HCl [Oxy-Ir 5 mg Tablet] 5 mg PO Q6HP PRN #0 tablet 01/31/17 Rivaroxaban [Xarelto 10 mg Tablet] 10 mg PO QHS #0 tablet 01/31/17 History of Present Illness History of Present Illness: JANNIE PHILLIPS is a 71 year old male who presents with progressive right hip pain and functional disability. He's admitted for elective right hip arthroplasty. Hospital Course Hospital Course: Patient's admitted through the operating room where he undergoes an uncomplicated right hip arthroplasty. His returned to the floor in satisfactory condition. Pain is well controlled. The some wound drainage necessitating dressing changes daily. The patient makes excellent progress with physical therapy and subsequent ray for discharge home with home health nursing, home health physical therapy, we'll Walker, bedside commode. Physical Exam Vital Signs: Temp Pulse Resp BP Pulse Ox 36.7 C 95 20 160/72 H 93 01/30/17 23:32 01/30/17 23:32 01/30/17 23:32 01/30/17 23:32 01/30/17 23:32 Intake & Output 01/30/17 01/31/17 02/01/17 06:59 06:59 06:59 Intake Total 5690 3774 Output Total 2560 1200 Balance 3130 2574 Weight 114 kg 118.4 kg General appearance: PRESENT: mild distress Head exam: PRESENT: normocephalic Eye exam: PRESENT: EOMI Respiratory exam: PRESENT: unlabored Cardiovascular exam: PRESENT: RRR Pulses: PRESENT: +1 pedal pulses bilateral Vascular exam: PRESENT: normal capillary refill GI/Abdominal exam: PRESENT: soft Rectal exam: PRESENT: deferred Extremities exam: PRESENT: other - Right hip dressing with scant drainage. Leg lengths are equal. Distal neurovascular examinations intact. Neurological exam: PRESENT: alert, awake, oriented to person, oriented to place , oriented to time, oriented to situation. ABSENT: motor sensory deficit Psychiatric exam: PRESENT: appropriate affect, normal mood. ABSENT: homicidal ideation, suicidal ideation Skin exam: PRESENT: dry, intact, warm. ABSENT: cyanosis, rash Results Laboratory Results: 01/31/17 06:13 01/30/17 01/30/17 01/30/17 07:11 07:11 16:38 WBC 10.7 H RBC 3.73 L Hgb 11.5 L Hct 33.1 L MCV 89 MCH 30.8 MCHC 34.7 RDW 13.8 Plt Count 170 Sodium 132.4 L 131.1 L Potassium 4.8 4.8 Chloride 97 L 93 L Carbon Dioxide 24 23 Anion Gap 11 15 BUN 32 H 35 H Creatinine 2.29 H 2.30 H Est GFR ( Amer) 34 L 34 L Est GFR (Non-Af Amer) 28 L 28 L Glucose 110 119 H Calcium 8.8 8.9 01/31/17 06:13 WBC 13.8 H RBC 3.82 L Hgb 11.6 L Hct 33.6 L MCV 88 MCH 30.4 MCHC 34.5 RDW 13.8 Plt Count 193 Sodium Potassium Chloride Carbon Dioxide Anion Gap BUN Creatinine Est GFR ( Amer) Est GFR (Non-Af Amer) Glucose Calcium Impressions: Chest X-Ray 01/18/17 11:39 IMPRESSION: NO SIGNIFICANT RADIOGRAPHIC FINDING IN THE CHEST. Pelvis X-Ray 01/29/17 11:15 IMPRESSION: Satisfactory postoperative right hip. Status: Imported from PACS Plan Discharge Plan: Patient to be discharged home with home health nursing, home health physical therapy, we'll Walker, bedside commode. Follow-up will be with Dr. Guzman in the [facility] for surgery proxy 2 weeks for staple removal. Time Spent: Less than 30 Minutes
[2017-01-31] MEDS ORDERED: MAGNESIUM CITRATE 296 ML BOTTLE PO ONE (08:30)
[2017-01-31] MEDS: METOPROLOL SUCCINATE 50 MG TAB.SR.24H PO SCH (09:27)
[2017-01-31] MEDS: ATORVASTATIN CALCIUM 40 MG TABLET PO SCH (09:27)
[2017-01-31] MEDS: AMLODIPINE BESYLATE 10 MG TABLET PO SCH (09:27)
[2017-01-31] MEDS: FINASTERIDE 5 MG TABLET PO SCH (09:27)
[2017-01-31] MEDS: OXYCODONE HCL IR 5 MG TABLET PO PRN (09:27)
[2017-01-31] MEDS: PRENATAL VITAMIN W-O CA NO5/FE FUMARATE/FA CAPSULE PO SCH (09:27)
[2017-01-31] MEDS: CHLORTHALIDONE 25 MG TABLET PO SCH (09:28)
[2017-01-31] MEDS: LOSARTAN POTASSIUM 50 MG TABLET PO SCH (09:28)
[2017-01-31] MEDS: SENNOSIDES/DOCUSATE 8.6-50 MG 1 EACH TABLET PO SCH ×2 (09:28→18:30)
--- NOTE | 2017-01-31 18:17 | PDOC PROGRESS REPORT ---
Subjective Progress Note for:: 01/31/17 Subjective:: Patient reported no chest pain or difficulty with breathing. Right hip surgical site bearable discomfort. OOB in chair at the time f my bedside consultation. Patient is proposed discharge home today. No abdominal pain, nausea or vomiting. No reported fever or chills. Physical Exam Vital Signs: Temp Pulse Resp BP Pulse Ox 98.1 F 95 20 160/72 H 93 01/30/17 23:32 01/30/17 23:32 01/30/17 23:32 01/30/17 23:32 01/30/17 23:32 Intake & Output 01/30/17 01/31/17 02/01/17 06:59 06:59 06:59 Intake Total 5690 3774 Output Total 2560 1200 Balance 3130 2574 Weight 114 kg 118.4 kg Physical Exam: General appearance: PRESENT: no acute distress, cooperative, obese Head exam: PRESENT: atraumatic, normocephalic Eye exam: PRESENT: conjunctiva pink, EOMI, PERRLA. ABSENT: scleral icterus Respiratory exam: PRESENT: clear to auscultation jazmin Cardiovascular exam: PRESENT: RRR. ABSENT: diastolic murmur, rubs, systolic murmur GI/Abdominal exam: PRESENT: normal bowel sounds, soft. ABSENT: distended, guarding, mass, organomegaly, rebound, tenderness Extremities exam: PRESENT: full ROM, tenderness - around right hip surgical site. Musculoskeletal exam: PRESENT: ambulatory, deformity - related to joint involvement with arthritis, tenderness - around right hip surgical site. Neurological exam: PRESENT: alert, awake, oriented to person, oriented to place , oriented to time, oriented to situation, CN II-XII grossly intact. ABSENT: motor sensory deficit Skin exam: PRESENT: dry, warm, other - right hip surgical site dressing fairly satisfactory. Results Laboratory Results: 01/31/17 06:13 01/31/17 06:13 01/30/17 01/31/17 01/31/17 16:38 06:13 06:13 WBC 13.8 H RBC 3.82 L Hgb 11.6 L Hct 33.6 L MCV 88 MCH 30.4 MCHC 34.5 RDW 13.8 Plt Count 193 Sodium 131.1 L 128.7 L Potassium 4.8 4.1 Chloride 93 L 91 L Carbon Dioxide 23 23 Anion Gap 15 15 BUN 35 H 30 H Creatinine 2.30 H 1.80 H Est GFR ( Amer) 34 L 45 L Est GFR (Non-Af Amer) 28 L 37 L Glucose 119 H 121 H Calcium 8.9 9.0 Impressions: Chest X-Ray 01/18/17 11:39 IMPRESSION: NO SIGNIFICANT RADIOGRAPHIC FINDING IN THE CHEST. Pelvis X-Ray 01/29/17 11:15 IMPRESSION: Satisfactory postoperative right hip. Assessment & Plan - Diagnosis (1) HTN (hypertension) Qualifiers: Hypertension type: essential hypertension Qualified Code(s): I10 - Essential (primary) hypertension Is this a current diagnosis for this admission?: YesPlan: See consulting attending physician orders. (2) HLD (hyperlipidemia) Qualifiers: Hyperlipidemia type: pure hypercholesterolemia Qualified Code(s): E78.00 - Pure hypercholesterolemia, unspecified; E78.0 - Pure hypercholesterolemia Is this a current diagnosis for this admission?: YesPlan: See consulting attending orders. (3) S/P primary angioplasty with coronary stent Is this a current diagnosis for this admission?: YesPlan: See consulting attending physician orders. (4) GERD (gastroesophageal reflux disease) Qualifiers: Esophagitis presence: without esophagitis Qualified Code(s): K21.9 - Gastro-esophageal reflux disease without esophagitis Is this a current diagnosis for this admission?: YesPlan: See consulting attending orders. (5) Osteoarthritis involving multiple joints on both sides of body Is this a current diagnosis for this admission?: YesPlan: See consulting attending orders. (6) History of total right hip arthroplasty Is this a current diagnosis for this admission?: YesPlan: s/p recent right hip arthroplasty surgery. See consulting attending physician orders. (7) Acute kidney injury Is this a current diagnosis for this admission?: NoPlan: There is some improvement in his renal indices. We will continue IV hydration with normal saline until discharge day otherwise we will monitor on outpatient. See consulting attending physician orders. - Time Time Spent with patient: 25-34 minutes Medications reviewed and adjusted accordingly: Yes Anticipated discharge: Home with Homehealth - Inpatient Certification Medical Necessity: Need For IV Fluids, Need for Pain Control, Risk of Complication if Not Cared For in Hospital - Plan Summary Plan Summary: Maintain on IV fluid hydration N/S @ 100 ml/hour until discharge day. Follow up in office as instructed upon discharge.
[2017-01-31] MEDS: MAG HYDROX/AL HYDROX/SIMETH SUSP 30 ML UDCUP PO PRN (18:38)
[2017-01-31] MEDS: RIVAROXABAN 10 MG TABLET PO SCH (22:09)
[2017-02-01 05:01] LABS: HEMATOCRIT 30.3 % (37.9-51.0); HEMOGLOBIN 10.6 g/dL (13.5-17.0); HGB HCT DIFFERENCE 1.5; MEAN CORPUSCULAR HEMOGLOBIN 30.4 pg (27.0-33.4); MEAN CORPUSCULAR HGB CONC 35.1 g/dL (32.0-36.0); MEAN CORPUSCULAR VOLUME 87 fl (80-97); RED BLOOD COUNT 3.49 10^6/uL (4.35-5.55); RED CELL DISTRIBUTION WIDTH 13.8 % (11.5-14.0); WHITE BLOOD COUNT 14.7 10^3/uL (4.0-10.5)
[2017-02-01 05:17] LABS: ANION GAP 15 (5-19); BLOOD UREA NITROGEN 33 mg/dL (7-20); CALCIUM 8.6 mg/dL (8.4-10.2); CARBON DIOXIDE 22 mmol/L (22-30); CHLORIDE 89 mmol/L (98-107); CREATININE RESULT 1.36 mg/dL (0.52-1.25); GLUCOSE 101 mg/dL (75-110); POTASSIUM 3.8 mmol/L (3.6-5.0); SODIUM 125.5 mmol/L (137-145)
[2017-02-01] MEDS: LANSOPRAZOLE 30 MG TAB.RAP.DR PO SCH (05:55)
--- NOTE | 2017-02-01 06:48 | PDOC PROGRESS REPORT ---
Subjective Progress Note for:: 02/01/17 Subjective:: Patient continues to complain of constipation. Mag citrate was not effective. Physical Exam Vital Signs: Temp Pulse Resp BP Pulse Ox 36.9 C 71 16 120/57 L 96 02/01/17 00:43 02/01/17 00:43 02/01/17 00:43 02/01/17 00:43 02/01/17 00:43 Intake & Output 01/30/17 01/31/17 02/01/17 06:59 06:59 06:59 Intake Total 5690 3774 660 Output Total 2560 1200 550 Balance 3130 2574 110 Weight 114 kg 118.4 kg General appearance: PRESENT: mild distress Head exam: PRESENT: normocephalic Eye exam: PRESENT: EOMI Respiratory exam: PRESENT: unlabored Cardiovascular exam: PRESENT: RRR Pulses: PRESENT: +1 pedal pulses bilateral Vascular exam: PRESENT: normal capillary refill GI/Abdominal exam: PRESENT: soft Rectal exam: PRESENT: deferred Extremities exam: PRESENT: other - Right hip dressing with moderate serous drainage. Dressing is changed. Neurological exam: PRESENT: alert, awake, oriented to person, oriented to place , oriented to time, oriented to situation. ABSENT: motor sensory deficit Psychiatric exam: PRESENT: appropriate affect, normal mood. ABSENT: homicidal ideation, suicidal ideation Skin exam: PRESENT: other - Ecchymosis of her right buttock Results Laboratory Results: 02/01/17 04:41 02/01/17 04:41 01/31/17 01/31/17 02/01/17 06:13 06:13 04:41 WBC 13.8 H 14.7 H RBC 3.82 L 3.49 L Hgb 11.6 L 10.6 L Hct 33.6 L 30.3 L MCV 88 87 MCH 30.4 30.4 MCHC 34.5 35.1 RDW 13.8 13.8 Plt Count 193 175 Sodium 128.7 L Potassium 4.1 Chloride 91 L Carbon Dioxide 23 Anion Gap 15 BUN 30 H Creatinine 1.80 H Est GFR ( Amer) 45 L Est GFR (Non-Af Amer) 37 L Glucose 121 H Calcium 9.0 02/01/17 04:41 WBC RBC Hgb Hct MCV MCH MCHC RDW Plt Count Sodium 125.5 L Potassium 3.8 Chloride 89 L Carbon Dioxide 22 Anion Gap 15 BUN 33 H Creatinine 1.36 H Est GFR ( Amer) > 60 Est GFR (Non-Af Amer) 52 L Glucose 101 Calcium 8.6 Impressions: Chest X-Ray 01/18/17 11:39 IMPRESSION: NO SIGNIFICANT RADIOGRAPHIC FINDING IN THE CHEST. Pelvis X-Ray 01/29/17 11:15 IMPRESSION: Satisfactory postoperative right hip. Status: Imported from PACS Assessment & Plan - Diagnosis (1) Arthritis of right hip Is this a current diagnosis for this admission?: YesPlan: 71-year-old white male status post right hip arthroplasty with relatively slow postoperative recovery. We'll try fleets enemas a solution for his constipation. I'll continue to work with physical therapy. Dressing can be changed as needed. - Time Time Spent with patient: 15-24 minutes Anticipated discharge: Home with Homehealth Within: within 24 hours
[2017-02-01 08:18] VITALS: BP 147/56
--- NOTE | 2017-02-01 08:21 | PDOC PROGRESS REPORT ---
Subjective Progress Note for:: 02/01/17 Subjective:: Patient reported persistent constipation and abdominal distention. No abdominal pain, nausea or vomiting. No reported fever or chills. No chest pain or difficulty with breathing. Right hip surgical site pain is satisfactorily controlled. OOB in chair at the time of my bedside evaluation this morning. Physical Exam Vital Signs: Temp Pulse Resp BP Pulse Ox 98.4 F 71 16 120/57 L 96 02/01/17 00:43 02/01/17 00:43 02/01/17 00:43 02/01/17 00:43 02/01/17 00:43 Intake & Output 01/31/17 02/01/17 02/02/17 06:59 06:59 06:59 Intake Total 3774 660 Output Total 1200 550 Balance 2574 110 Weight 118.4 kg Physical Exam: General appearance: PRESENT: no acute distress, cooperative, obese Head exam: PRESENT: atraumatic, normocephalic Eye exam: PRESENT: conjunctiva pink, EOMI, PERRLA. ABSENT: scleral icterus Respiratory exam: PRESENT: clear to auscultation jazmin Cardiovascular exam: PRESENT: RRR. ABSENT: diastolic murmur, rubs, systolic murmur GI/Abdominal exam: PRESENT: distended, normal bowel sounds, soft. ABSENT: guarding, mass, organomegaly, rebound, tenderness Extremities exam: PRESENT: full ROM, tenderness - around right hip surgical site. Musculoskeletal exam: PRESENT: ambulatory, deformity - related to joint involvement with arthritis, tenderness - around right hip surgical site. Neurological exam: PRESENT: alert, awake, oriented to person, oriented to place , oriented to time, oriented to situation, CN II-XII grossly intact. ABSENT: motor sensory deficit Skin exam: PRESENT: dry, warm, other - right hip surgical site dressing fairly satisfactory with minimal serous drainage.. Results Laboratory Results: 02/01/17 04:41 02/01/17 04:41 02/01/17 02/01/17 04:41 04:41 WBC 14.7 H RBC 3.49 L Hgb 10.6 L Hct 30.3 L MCV 87 MCH 30.4 MCHC 35.1 RDW 13.8 Plt Count 175 Sodium 125.5 L Potassium 3.8 Chloride 89 L Carbon Dioxide 22 Anion Gap 15 BUN 33 H Creatinine 1.36 H Est GFR ( Amer) > 60 Est GFR (Non-Af Amer) 52 L Glucose 101 Calcium 8.6 Impressions: Chest X-Ray 01/18/17 11:39 IMPRESSION: NO SIGNIFICANT RADIOGRAPHIC FINDING IN THE CHEST. Pelvis X-Ray 01/29/17 11:15 IMPRESSION: Satisfactory postoperative right hip. Assessment & Plan - Diagnosis (1) HTN (hypertension) Qualifiers: Hypertension type: essential hypertension Qualified Code(s): I10 - Essential (primary) hypertension Is this a current diagnosis for this admission?: YesPlan: See consulting attending physician orders. (2) HLD (hyperlipidemia) Qualifiers: Hyperlipidemia type: pure hypercholesterolemia Qualified Code(s): E78.00 - Pure hypercholesterolemia, unspecified; E78.0 - Pure hypercholesterolemia Is this a current diagnosis for this admission?: YesPlan: See consulting attending orders. (3) S/P primary angioplasty with coronary stent Is this a current diagnosis for this admission?: YesPlan: See consulting attending physician orders. (4) GERD (gastroesophageal reflux disease) Qualifiers: Esophagitis presence: without esophagitis Qualified Code(s): K21.9 - Gastro-esophageal reflux disease without esophagitis Is this a current diagnosis for this admission?: YesPlan: See consulting attending orders. (5) Osteoarthritis involving multiple joints on both sides of body Is this a current diagnosis for this admission?: YesPlan: See consulting attending orders. (6) History of total right hip arthroplasty Is this a current diagnosis for this admission?: YesPlan: s/p recent right hip arthroplasty surgery. See consulting attending physician orders. (7) Acute kidney injury Is this a current diagnosis for this admission?: NoPlan: Improving renal indices. See consulting attending physician orders. (8) Constipation due to opioid therapy Is this a current diagnosis for this admission?: NoPlan: See consulting attending physician orders. - Time Time Spent with patient: 25-34 minutes Medications reviewed and adjusted accordingly: Yes Anticipated discharge: Home with Homehealth Within: within 24 hours - Inpatient Certification Medical Necessity: Need Close Monitoring Due to Risk of Patient Decompensation, Need for Pain Control, Need for Surgery, Risk of Complication if Not Cared For in Hospital Post Hospital Care: D/C Fixed Income Analyst Documentation - Plan Summary Plan Summary: I will order Dulcolax suppository 10 mg HI x 1 dose since patient is refusing enema. Continue with Senna usage. D/C IV fluid due to soft tissue infiltrate in left forearm and improved oral fluid intake. F/up on renal function on outpatient. If discharged home today follow up in office about 2 weeks.
[2017-02-01] MEDS ORDERED: NA PHOS,M-B/NA PHOS,DI-BA (ADULT) 133 ML ENEMA PR ONE (09:00)
[2017-02-01] MEDS ORDERED: BISACODYL 10 MG SUPP.RECT PR ONE (09:30)
[2017-02-01] MEDS: SENNOSIDES/DOCUSATE 8.6-50 MG 1 EACH TABLET PO SCH (10:21)
[2017-02-01] MEDS: ATORVASTATIN CALCIUM 40 MG TABLET PO SCH (10:33)
[2017-02-01] MEDS: AMLODIPINE BESYLATE 10 MG TABLET PO SCH (10:33)
[2017-02-01] MEDS: CHLORTHALIDONE 25 MG TABLET PO SCH (10:33)
[2017-02-01] MEDS: LOSARTAN POTASSIUM 50 MG TABLET PO SCH (10:33)
[2017-02-01] MEDS: METOPROLOL SUCCINATE 50 MG TAB.SR.24H PO SCH (10:33)
[2017-02-01] MEDS: FINASTERIDE 5 MG TABLET PO SCH (10:33)
[2017-02-01] MEDS: PRENATAL VITAMIN W-O CA NO5/FE FUMARATE/FA CAPSULE PO SCH (10:33)
== END 2017-02-01 12:25 | disposition home health service (06) | DRG 470 ==
LOC: INOR 08:11 → 4S 12:15
PROVIDERS: ADMIT Orthopaedic Surgery; ATTEND Orthopaedic Surgery
PROC: 0SR902A Replacement of Right Hip Joint with Metal on Polyethylene Synthetic Substitute, Uncemented, Open Approach (ICD-10-PCS; principal; 2017-01-29 10:15)
DX: M16.0 Bilateral primary osteoarthritis of hip (principal); N17.9 Acute kidney failure, unspecified; I10 Essential (primary) hypertension; I25.10 Atherosclerotic heart disease of native coronary artery without angina pectoris; E78.5 Hyperlipidemia, unspecified; K21.9 Gastro-esophageal reflux disease without esophagitis; I73.9 Peripheral vascular disease, unspecified; M19.90 Unspecified osteoarthritis, unspecified site; K59.00 Constipation, unspecified; Z79.82 Long term (current) use of aspirin; Z95.5 Presence of coronary angioplasty implant and graft; Z87.891 Personal history of nicotine dependence; Z79.899 Other long term (current) drug therapy; Z79.02 Long term (current) use of antithrombotics/antiplatelets
CPT/HCPCS: 01214; 36415; 71020; 72170; 80048; 81001; 84132; 85027; 85610; 85730; 86850; 86900; 86901; 88304; 88311; 93005; 93010; 94799; C1713; C9290; G8978-GP; G8979-GP; G8987-GO; G8988-GO; J0690; J1741; J2250; J2270; J2405; J2704; J3010; J3370; J3490; J7050; J7060

== ENCOUNTER → 2017-02-13 | Outpatient (CLI) | payer MEDICARE, OTHER ==
[2017-02-13 11:48] LABS: ANION GAP 12 (5-19); BLOOD UREA NITROGEN 19 mg/dL (7-20); CALCIUM 9.7 mg/dL (8.4-10.2); CARBON DIOXIDE 29 mmol/L (22-30); CHLORIDE 96 mmol/L (98-107); CREATININE RESULT 1.27 mg/dL (0.52-1.25); GLUCOSE 86 mg/dL (75-110); POTASSIUM 4.2 mmol/L (3.6-5.0)
[2017-02-13 11:49] LABS: C-REACTIVE PROTEIN < 5.0 mg/L (<10.0)
[2017-02-13 12:04] LABS: ABSOLUTE BASOPHILS # (AUTO) 0.1 10^3/uL (0.0-0.2); ABSOLUTE EOSINOPHILS # (AUTO) 0.2 10^3/uL (0.0-0.6); ABSOLUTE LYMPHOCYTES (AUTO) 1.3 10^3/uL (0.5-4.7); ABSOLUTE MONOCYTES (AUTO) 0.9 10^3/uL (0.1-1.4); ABSOLUTE NEUT (AUTO) 6.3 10^3/uL (1.7-8.2); BASOPHILS % (AUTO) 0.8 % (0-2); EOSINOPHILS % (AUTO) 1.9 % (0-6); HEMATOCRIT 35.2 % (37.9-51.0); HEMOGLOBIN 12.1 g/dL (13.5-17.0); HGB HCT DIFFERENCE 1.1; LYMPHOCYTES % (AUTO) 14.6 % (13-45); MEAN CORPUSCULAR HEMOGLOBIN 30.4 pg (27.0-33.4); MEAN CORPUSCULAR HGB CONC 34.4 g/dL (32.0-36.0); MEAN CORPUSCULAR VOLUME 89 fl (80-97); MONOCYTES % (AUTO) 10.2 % (3-13); RED BLOOD COUNT 3.98 10^6/uL (4.35-5.55); RED CELL DISTRIBUTION WIDTH 14.1 % (11.5-14.0); SEGMENTED NEUTROPHILS % (AUTO) 72.5 % (42-78); WHITE BLOOD COUNT 8.7 10^3/uL (4.0-10.5)
== END ==
LOC: OD 10:04
PROVIDERS: ATTEND Orthopaedic Surgery
DX: T82.7XXA Infection and inflammatory reaction due to other cardiac and vascular devices, implants and grafts, initial encounter (principal)
CPT/HCPCS: 36415; 80048; 85025; 85652; 86140

== ENCOUNTER → 2017-10-30 | Outpatient (CLI) | payer MEDICARE, OTHER ==
--- NOTE | 2017-10-30 09:16 | RADIOLOGY REPORT (SQ) ---
EXAM DESCRIPTION: U/S RETROPERITON (RENAL/AORTA) COMPLETED DATE/TIME: 10/30/2017 8:18 am REASON FOR STUDY: ABN KIDNEY FUNCTIONS R94.4 ABNORMAL RESULTS OF KIDNEY FUNCTION STUDIES COMPARISON: None. TECHNIQUE: Dynamic and static grayscale images acquired of the kidneys and bladder and recorded on P ACS. Additional selected color Doppler and spectral images recorded. LIMITATIONS: None. FINDINGS: RIGHT KIDNEY: Normal size, 11.3 cm in length. Normal echogenicity. No solid or suspicious masses. No hydronephrosis. No calcifications. LEFT KIDNEY: Normal size, 10.5 cm in length. Normal echogenicity. No solid or suspicious masses. No hydronephrosis. No calcifications. BLADDER: No masses. OTHER FINDINGS: Enlarged prostate, 5 cm in diameter IMPRESSION: NO HYDRONEPHROSIS. GROSSLY NORMAL CORTICAL THICKNESS AND ECHOGENICITY. ENLARGED PROSTATE TECHNICAL DOCUMENTATION: JOB ID: [id number] [employer]- All Rights Reserved
== END ==
LOC: RAD 07:34
PROVIDERS: ATTEND Internal Medicine Geriatric Medicine
DX: R94.4 Abnormal results of kidney function studies (principal); N40.0 Benign prostatic hyperplasia without lower urinary tract symptoms
CPT/HCPCS: 76770

== ENCOUNTER → 2018-03-06 | Outpatient (CLI) | payer MEDICARE, OTHER ==
--- NOTE | 2018-03-06 11:52 | RADIOLOGY REPORT (SQ) ---
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 NUMBER OF VIEWS: Two views. TECHNIQUE: AP and lateral radiographic images acquired of the lumbar spine. LIMITATIONS: None. FINDINGS: MINERALIZATION: Osteopenia SEGMENTATION: Normal. No transitional anatomy. ALIGNMENT: Mild retrolisthesis of L3 over L4. Mild grade 1 anterolisthesis of L4 over L5. VERTEBRAE: Maintained height. No fracture or worrisome bone lesion. DISCS: Decreased disc space height at L3-4, L4-5, and L5-S1 POSTERIOR ELEMENTS: Pedicles and facets are intact. No pars defect or posterior arch defects. Diffu se lower lumbar facet arthropathy HARDWARE: No spinal hardware. Stents are present inferior abdominal aorta and left proximal common i liac artery PARASPINAL SOFT TISSUES: Normal. PELVIS: Not included in the field of view. SI joints are unremarkable OTHER: No other significant finding. IMPRESSION: Lower lumbar degenerative disc disease and facet arthropathy TECHNICAL DOCUMENTATION: JOB ID: [id number] [employer]- All Rights Reserved Reading location - IP/workstation name: [email or web address]
== END ==
LOC: RAD 09:40
PROVIDERS: ATTEND Internal Medicine Geriatric Medicine
DX: M47.817 Spondylosis without myelopathy or radiculopathy, lumbosacral region (principal)
CPT/HCPCS: 72100

== ENCOUNTER → 2019-07-11 | Outpatient (CLI) | payer MEDICARE, OTHER ==
[2019-07-11 09:59] LABS: ABSOLUTE BASOPHILS # (AUTO) 0.1 10^3/uL (0.0-0.2); ABSOLUTE EOSINOPHILS # (AUTO) 0.3 10^3/uL (0.0-0.6); ABSOLUTE LYMPHOCYTES (AUTO) 1.9 10^3/uL (0.5-4.7); ABSOLUTE MONOCYTES (AUTO) 0.8 10^3/uL (0.1-1.4); ABSOLUTE NEUT (AUTO) 4.6 10^3/uL (1.7-8.2); EOSINOPHILS % (AUTO) 4.5 % (0-6); HEMATOCRIT 40.1 % (37.9-51.0); LYMPHOCYTES % (AUTO) 24.3 % (13-45); MEAN CORPUSCULAR HEMOGLOBIN 30.7 pg (27.0-33.4); MEAN CORPUSCULAR HGB CONC 34.8 g/dL (32.0-36.0); MEAN CORPUSCULAR VOLUME 88 fl (80-97); MONOCYTES % (AUTO) 10.6 % (3-13); PLATELET COUNT 195 10^3/uL (150-450); RED BLOOD COUNT 4.54 10^6/uL (4.35-5.55); RED CELL DISTRIBUTION WIDTH 13.2 % (11.5-14.0); SEGMENTED NEUTROPHILS % (AUTO) 59.6 % (42-78); TOTAL CELLS COUNTED % (AUTO) 100 %; WHITE BLOOD COUNT 7.6 10^3/uL (4.0-10.5)
[2019-07-11 10:27] LABS: ALBUMIN 4.4 g/dL (3.5-5.0); ALKALINE PHOSPHATASE 64 U/L (38-126); ANION GAP 12 (5-19); ASPARTATE AMINO TRANSFERASE 27 U/L (17-59); BILIRUBIN,DIRECT 0.2 mg/dL (0.0-0.4); BILIRUBIN,TOTAL 0.7 mg/dL (0.2-1.3); BLOOD UREA NITROGEN 30 mg/dL (7-20); CALCIUM 9.6 mg/dL (8.4-10.2); CARBON DIOXIDE 28 mmol/L (22-30); CHLORIDE 95 mmol/L (98-107); GLUCOSE 98 mg/dL (75-110); POTASSIUM 4.4 mmol/L (3.6-5.0); TOTAL PROTEIN 7.3 g/dL (6.3-8.2)
[2019-07-11 11:51] LABS: APPEARANCE,URINE CLEAR; BILIRUBIN,URINE NEGATIVE (NEGATIVE); COLOR,URINE YELLOW; GLUCOSE, URINE NEGATIVE (NEGATIVE); KETONES,URINE NEGATIVE (NEGATIVE); LEUKOCYTE ESTERASE,URINE NEGATIVE (NEGATIVE); NITRITE,URINE NEGATIVE (NEGATIVE); PROTEIN,URINE NEGATIVE (NEGATIVE); URINE SPECIFIC GRAVITY 1.017; UROBILINOGEN,URINE NEGATIVE mg/dL (<2.0)
== END ==
LOC: OD 09:16
PROVIDERS: ATTEND Internal Medicine Nephrology
DX: I12.9 Hypertensive chronic kidney disease with stage 1 through stage 4 chronic kidney disease, or unspecified chronic kidney disease (principal); N18.3 Chronic kidney disease, stage 3 (moderate)
CPT/HCPCS: 36415; 80053; 81001; 83735; 85025

== ENCOUNTER → 2019-08-27 | Outpatient (CLI) | payer MEDICARE, OTHER ==
[2019-08-27 10:20] LABS: ANION GAP 10 (5-19); BLOOD UREA NITROGEN 11 mg/dL (7-20); CALCIUM 9.5 mg/dL (8.4-10.2); CARBON DIOXIDE 27 mmol/L (22-30); CHLORIDE 99 mmol/L (98-107); GLUCOSE 87 mg/dL (75-110); POTASSIUM 4.2 mmol/L (3.6-5.0)
== END ==
LOC: OD 09:19
PROVIDERS: ATTEND Internal Medicine Nephrology
DX: I12.9 Hypertensive chronic kidney disease with stage 1 through stage 4 chronic kidney disease, or unspecified chronic kidney disease (principal); N18.3 Chronic kidney disease, stage 3 (moderate)
CPT/HCPCS: 36415; 80048

== ENCOUNTER → 2020-02-16 | Outpatient (CLI) | payer MEDICARE, OTHER ==
[2020-02-16 09:43] LABS: ABSOLUTE BASOPHILS # (AUTO) 0.1 10^3/uL (0.0-0.2); ABSOLUTE EOSINOPHILS # (AUTO) 0.4 10^3/uL (0.0-0.6); ABSOLUTE MONOCYTES (AUTO) 0.8 10^3/uL (0.1-1.4); ABSOLUTE NEUT (AUTO) 5.6 10^3/uL (1.7-8.2); BASOPHILS % (AUTO) 0.8 % (0-2); EOSINOPHILS % (AUTO) 4.4 % (0-6); HEMATOCRIT 42.9 % (37.9-51.0); HEMOGLOBIN 14.9 g/dL (13.5-17.0); LYMPHOCYTES % (AUTO) 22.7 % (13-45); MEAN CORPUSCULAR HGB CONC 34.7 g/dL (32.0-36.0); MEAN CORPUSCULAR VOLUME 89 fl (80-97); PLATELET COUNT 224 10^3/uL (150-450); RED BLOOD COUNT 4.81 10^6/uL (4.35-5.55); RED CELL DISTRIBUTION WIDTH 14.3 % (11.5-14.0); SEGMENTED NEUTROPHILS % (AUTO) 63.1 % (42-78); TOTAL CELLS COUNTED % (AUTO) 100 %
[2020-02-16 09:56] LABS: ANION GAP 7 (5-19); BLOOD UREA NITROGEN 15 mg/dL (7-20); CALCIUM 9.6 mg/dL (8.4-10.2); CARBON DIOXIDE 28 mmol/L (22-30); CHLORIDE 99 mmol/L (98-107); GLUCOSE 90 mg/dL (75-110); POTASSIUM 4.4 mmol/L (3.6-5.0)
== END ==
LOC: OD 08:52
PROVIDERS: ATTEND Internal Medicine Nephrology
DX: I12.9 Hypertensive chronic kidney disease with stage 1 through stage 4 chronic kidney disease, or unspecified chronic kidney disease (principal); N18.3 Chronic kidney disease, stage 3 (moderate)
CPT/HCPCS: 36415; 80048; 85025

== ENCOUNTER 2020-06-13 09:30 | Emergency (ER) | payer MEDICARE, OTHER ==
--- NOTE | 2020-06-13 10:41 | RADIOLOGY REPORT (SQ) ---
EXAM DESCRIPTION: HAND LEFT 3 VIEWS IMAGES COMPLETED DATE/TIME: 06/13/2020 10:25 am REASON FOR STUDY: fall, pain to the 5th digit COMPARISON: None. EXAM PARAMETERS: NUMBER OF VIEWS: Three views. TECHNIQUE: AP, lateral and oblique radiographic images acquired of the left hand. LIMITATIONS: None. FINDINGS: MINERALIZATION: Normal. BONES: No acute fracture or dislocation. No worrisome bone lesions. Mild degenerative changes at the thumb carpometacarpal joint. JOINTS: No erosions. No mary-articular osteopenia. No chondrocalcinosis. SOFT TISSUES: No swelling. No calcifications. OTHER: No other significant finding. IMPRESSION: No acute osseous abnormality. TECHNICAL DOCUMENTATION: JOB ID: [id number] [employer]- All Rights Reserved Reading location - IP/workstation name: [email or web address]
[2020-06-13] MEDS ORDERED: TRANEXAMIC ACID INJ/PF 1,000 MG/10 ML SDV TOP ONE (10:54)
--- NOTE | 2020-06-13 12:22 | ER Document Report ---
Entered by GENIE LISA SCRIBE 06/13/20 1053 Acting as scribe for:MELANIA VAERLA MD ED Hand/Wrist Injury - General Chief Complaint: Finger Injury Stated Complaint: LEFT FINGER INJURY Time Seen by Provider: 06/13/20 10:38 Primary Care Provider: BAYRON HSU MD [Primary Care Provider] - Follow up as needed Mode of Arrival: Ambulatory Information source: Patient Notes: This 75 year old male patient presents to the emergency department today with complaints of left fifth finger pain. Patient had a fall and his nail caught on the concrete and pulled the nail off. Patient has a laceration across the nail bed on the left fifth finger. TRAVEL OUTSIDE OF THE [place] IN LAST 30 DAYS: No - Related Data Allergies/Adverse Reactions: No Known Allergies Allergy (Verified 06/13/20 10:14) Past Medical History - General Information source: Patient - Social History Smoking Status: Former Smoker Cigarette use (# per day): No Chew tobacco use (# tins/day): No Frequency of alcohol use: None Drug Abuse: None Lives with: Family Family History: Reviewed & Not Pertinent Patient has homicidal ideation: No - Past Medical History Cardiac Medical History: Reports: Hx Coronary Artery Disease, Hx Hypercholesterolemia, Hx Hypertension, Hx Peripheral Vascular Disease Renal/ Medical History: Reports: Hx Benign Prostatic Hyperplasia GI Medical History: Reports: Hx Gastroesophageal Reflux Disease Musculoskeletal Medical History: Reports Hx Arthritis Past Surgical History: Reports: Hx Cardiac Catheterization, Hx Cardiac Surgery, Hx Coronary Stent, Hx Tonsillectomy - Immunizations Hx Pneumococcal Vaccination: 01/08/17 Review of Systems - Review of Systems Constitutional: No symptoms reported EENT: No symptoms reported Cardiovascular: No symptoms reported Respiratory: No symptoms reported Gastrointestinal: No symptoms reported Genitourinary: No symptoms reported Male Genitourinary: No symptoms reported Musculoskeletal: No symptoms reported Skin: See HPI, Other - left 5th finger Hematologic/Lymphatic: No symptoms reported Neurological/Psychological: No symptoms reported -: Yes All other systems reviewed and negative Physical Exam - Vital signs Vitals: Temp Pulse Resp BP Pulse Ox 97.9 F 81 16 164/63 H 97 06/13/20 09:35 06/13/20 09:35 06/13/20 09:35 06/13/20 09:35 06/13/20 09:35 - Extremities General upper extremity: Other - The left fifth finger shows the nail to have been torn off completely. There is about a 7 mm transverse laceration into the nailbed at the distal third which extends down 1 mm on the radial side of the finger. There is oozing blood from this wound. The nailbed appears well approximated. If the tip of the finger is bent down, the wound will open. Course - Re-evaluation Re-evalutation: 06/13/20 12:48 PROCEDURE LEFT FIFTH FINGER: TXA was dripped onto the nailbed. A 2 x 2 gauze was placed on top of the nailbed and more TXA was dripped into the gauze to saturated. Additional 2 x 2's were wrapped around the fingertip, and once it was adequately padded, tape was used to hold the dressing firmly in place. I reexamined the wound about 45 minutes later taking the bandages off. There was no active bleeding noted on reexamination. A 2 x 2 was again placed on the nailbed and TXA was dripped into the 2 x 2 saturating it. Next dry 2 x 2's were wrapped around the nailbed. These were taped firmly to keep pressure on the nailbed. A bulky dressing was then applied to protect the fingertip. - Vital Signs Vital signs: Temp Pulse Resp BP Pulse Ox 97.9 F 81 16 164/63 H 97 06/13/20 09:35 06/13/20 09:35 06/13/20 09:35 06/13/20 09:35 06/13/20 09:35 Discharge - Discharge Clinical Impression: Bleeding from finger Fingernail avulsion, complete Qualifiers: Encounter type: initial encounter Qualified Code(s): S61.309A - Unspecified open wound of unspecified finger with damage to nail, initial encounter Nailbed laceration, finger Qualifiers: Encounter type: initial encounter Qualified Code(s): S61.319A - Laceration without foreign body of unspecified finger with damage to nail, initial encounter Condition: Stable Disposition: HOME, SELF-CARE Additional Instructions: Keep the finger dressing clean and dry for the next 3 days. Then soak the dressing off, be careful removing the final layer from the fingertip so as not to provoke new bleeding. After you have removed the gauze dressing, put bacitracin ointment on the fingernail bed and wrapped with a Band-Aid. Next, splint the fingertip so that it cannot be bent while the wound heals. RETURN TO THE EMERGENCY ROOM IF ANY NEW OR WORSENING SYMPTOMS. Referrals: BAYRON HSU MD [Primary Care Provider] - Follow up as needed I personally performed the services described in the documentation, reviewed and edited the documentation which was dictated to the scribe in my presence, and it accurately records my words and actions.
[2020-06-13 14:45] VITALS: BP 140/85
== END 2020-06-13 14:45 | disposition home or self-care (01) ==
LOC: ER 09:30
DX: S61.317A Laceration without foreign body of left little finger with damage to nail, initial encounter (principal); W19.XXXA Unspecified fall, initial encounter; I25.10 Atherosclerotic heart disease of native coronary artery without angina pectoris; I10 Essential (primary) hypertension; Z87.891 Personal history of nicotine dependence
CPT/HCPCS: 99283; 73130; J3490

== ENCOUNTER → 2020-08-06 | Outpatient (CLI) | payer MEDICARE, OTHER ==
[2020-08-06 09:11] LABS: APPEARANCE,URINE CLEAR; BILIRUBIN,URINE NEGATIVE (NEGATIVE); COLOR,URINE YELLOW; GLUCOSE, URINE NEGATIVE (NEGATIVE); KETONES,URINE NEGATIVE (NEGATIVE); LEUKOCYTE ESTERASE,URINE NEGATIVE (NEGATIVE); NITRITE,URINE NEGATIVE (NEGATIVE); PROTEIN,URINE NEGATIVE (NEGATIVE); UROBILINOGEN,URINE NEGATIVE mg/dL (<2.0)
[2020-08-06 09:32] LABS: ABSOLUTE BASOPHILS # (AUTO) 0.1 10^3/uL (0.0-0.2); ABSOLUTE EOSINOPHILS # (AUTO) 0.5 10^3/uL (0.0-0.6); ABSOLUTE LYMPHOCYTES (AUTO) 1.7 10^3/uL (0.5-4.7); ABSOLUTE MONOCYTES (AUTO) 0.8 10^3/uL (0.1-1.4); ABSOLUTE NEUT (AUTO) 4.4 10^3/uL (1.7-8.2); BASOPHILS % (AUTO) 1.1 % (0-2); EOSINOPHILS % (AUTO) 6.4 % (0-6); HEMATOCRIT 41.7 % (37.9-51.0); HEMOGLOBIN 14.7 g/dL (13.5-17.0); LYMPHOCYTES % (AUTO) 23.2 % (13-45); MEAN CORPUSCULAR HEMOGLOBIN 31.6 pg (27.0-33.4); MEAN CORPUSCULAR HGB CONC 35.2 g/dL (32.0-36.0); MEAN CORPUSCULAR VOLUME 90 fl (80-97); MONOCYTES % (AUTO) 10.3 % (3-13); PLATELET COUNT 203 10^3/uL (150-450); RED BLOOD COUNT 4.65 10^6/uL (4.35-5.55); RED CELL DISTRIBUTION WIDTH 13.6 % (11.5-14.0); TOTAL CELLS COUNTED % (AUTO) 100 %; WHITE BLOOD COUNT 7.4 10^3/uL (4.0-10.5)
[2020-08-06 09:49] LABS: ANION GAP 10 (5-19); BLOOD UREA NITROGEN 16 mg/dL (7-20); CALCIUM 9.5 mg/dL (8.4-10.2); CARBON DIOXIDE 27 mmol/L (22-30); CHLORIDE 101 mmol/L (98-107); GLUCOSE 94 mg/dL (75-110); POTASSIUM 4.4 mmol/L (3.6-5.0)
== END ==
LOC: OD 08:38
PROVIDERS: ATTEND Internal Medicine Nephrology
DX: I12.9 Hypertensive chronic kidney disease with stage 1 through stage 4 chronic kidney disease, or unspecified chronic kidney disease (principal); N18.2 Chronic kidney disease, stage 2 (mild)
CPT/HCPCS: 36415; 80048; 81001; 85025